=== PATIENT | female | born 1980 | race American Indian/Alaskan Native ===

== ENCOUNTER 2019-09-05 11:20 | Emergency (ER) | payer MEDICAID, OTHER ==
[2019-09-05 11:33] VITALS: BP 112/74; PULSE 73
--- NOTE | 2019-09-05 11:35 | EDM.PDOC ---
ED HPI GENERAL MEDICAL PROBLEM - General Chief Complaint: Respiratory Problem Time Seen by Provider: 09/05/19 11:31 Source of Information: Reports: Patient History Limitations: Reports: No Limitations - History of Present Illness INITIAL COMMENTS - FREE TEXT/NARRATIVE: ED with c/o cough and sore throat, kids at home sick also. Used neb this am and 2 steroid pills but unsure what they were. Unsure if fever. 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: Musculoskeletal History: Reports: None Neurological History: Reports: None Psychiatric History: Reports: None Endocrine/Metabolic History: Reports: None Hematologic History: Reports: Anemia Immunologic History: Reports: None Oncologic (Cancer) History: Reports: None Dermatologic History: Reports: None - Infectious Disease History Infectious Disease History: Reports: Hepatitis C, MRSA - Past Surgical History Head Surgeries/Procedures: Reports: None GI Surgical History: Reports: Cholecystectomy Social & Family History - Family History Family Medical History: Noncontributory ED ROS GENERAL - Review of Systems Review Of Systems: Comprehensive ROS is negative, except as noted in HPI. ED EXAM, GENERAL - Physical Exam Exam: See Below Exam Limited By: No Limitations General Appearance: Alert, No Apparent Distress Eye Exam: Bilateral Eye: PERRL Ears: Normal External Exam, Normal TMs Nose: Normal Inspection Throat/Mouth: Normal Inspection Head: Atraumatic, Normocephalic Neck: Normal Inspection Respiratory/Chest: No Respiratory Distress, Lungs Clear, Normal Breath Sounds Cardiovascular: Normal Peripheral Pulses, Regular Rate, Rhythm, No Edema GI/Abdominal: Normal Bowel Sounds Back Exam: Full Range of Motion Extremities: Normal Inspection Neurological: Alert, Oriented Psychiatric: Normal Affect Skin Exam: Warm, Dry, Intact, Normal Color Course - Vital Signs Last Recorded V/S: Last Vital Signs Temp 97.9 F 09/05/19 11:23 Pulse 73 09/05/19 11:23 Resp 16 09/05/19 11:23 BP 112/74 09/05/19 11:23 Pulse Ox 98 09/05/19 11:23 - Orders/Labs/Meds Orders: Active Orders 24 hr Category Date Time Status CULTURE STREP A CONFIRMATION [RM] Stat Lab 09/05/19 11:27 Results STREP SCRN A RAPID W CULT CONF [RM] Stat Lab 09/05/19 11:27 Results Isolation [COMM] Routine Oth 09/05/19 12:15 Active Departure - Departure Time of Disposition: 12:47 Disposition: Home, Self-Care 01 Condition: Good Clinical Impression: Bronchitis - Discharge Information *PRESCRIPTION DRUG MONITORING PROGRAM REVIEWED*: No *COPY OF PRESCRIPTION DRUG MONITORING REPORT IN PATIENT BELINDA: No Instructions: Upper Respiratory Infection, Adult, [id number] Forms: ED Department Discharge Additional Instructions: albuterol neb every 4 hours as needed tesselon 200mg one every 8 hours as needed for cough humidification isolate, stay home tylenol or ibuprofen, may alternate every 4 hours as needed for discomfort increase fluid intake azithromycin 500mg today then 250 daily x 4 days Sepsis Event Note - Focused Exam Vital Signs: Vital Signs Temp Pulse Resp BP Pulse Ox 09/05/19 11:23 97.9 F 73 16 112/74 98 Date Exam was Performed: 09/05/19 Time Exam was Performed: 12:47 - My Orders Last 24 Hours: My Active Orders 09/05/19 11:27 CULTURE STREP A CONFIRMATION [RM] Stat STREP SCRN A RAPID W CULT CONF [RM] Stat 09/05/19 12:15 Isolation [COMM] Routine - Assessment/Plan Last 24 Hours: My Active Orders 09/05/19 11:27 CULTURE STREP A CONFIRMATION [RM] Stat STREP SCRN A RAPID W CULT CONF [RM] Stat 09/05/19 12:15 Isolation [COMM] Routine
--- NOTE | 2019-09-05 12:43 | CR ---
EXAMINATION: Chest 1V Frontal SEX: Female AGE: 39 years CLINICAL HISTORY: 39-year-old female with cough. INTERPRETATION: Upright AP portable chest film abnormal. Shaggy bronchitic pattern and some patchy lingular atelectasis or developing infiltrate (SHARAD). Normal cardiac silhouette without pulmonary vascular congestion, cephalization of flow, alveolar edema or dependent effusion. Reasonable inspiratory effort obese female. No new lung mass, hilar lymphadenopathy or other focal lobar consolidation. No pneumothorax or pneumomediastinum. No foreign bodies. CONCLUSION: Bronchitis and lingular atelectasis or infiltrate.
== END 2019-09-05 12:54 | disposition home or self-care (01) ==
LOC: DL.ED 11:20
DX: J40 Bronchitis, not specified as acute or chronic (principal); Z90.49 Acquired absence of other specified parts of digestive tract
CPT/HCPCS: 71045; 87081; 87430; 87804; 99284-25

== ENCOUNTER 2020-07-16 15:26 | Emergency (ER) | payer OTHER, MEDICAID ==
[2020-07-16 16:06] VITALS: BP 147/90; PULSE 89
[2020-07-16 16:27] LABS: ANION GAP 12.5 mEq/L (7-13); CHLORIDE,CL 105 mmol/L (98-107); SODIUM,NA 144 mmol/L (136-145)
[2020-07-16 16:28] LABS: ACETAMINOPHEN 0 ug/mL (10-30 (Therapeutic))
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
== END 2020-07-16 17:15 ==
LOC: DL.ED 15:26
DX: M25.512 Pain in left shoulder (principal); F12.90 Cannabis use, unspecified, uncomplicated; F19.10 Other psychoactive substance abuse, uncomplicated; F15.90 Other stimulant use, unspecified, uncomplicated; Z20.822 Contact with and (suspected) exposure to COVID-19; Z72.0 Tobacco use; V58.5XXA Driver of pick-up truck or van injured in noncollision transport accident in traffic accident, initial encounter; Y92.410 Unspecified street and highway as the place of occurrence of the external cause
CPT/HCPCS: 36415; 73030-LT; 80053; 80143; 80179; 80305-QW; 80307; 81001; 83735; 85025; 99284-25; U0002